=== PATIENT | female | born 1960 | race Asian ===

== ENCOUNTER 2023-01-09 16:12 | Outpatient (REF) | payer OTHER, SELFPAY ==
--- NOTE | 2023-01-09 16:00 | PAPFT_PTH ---
PATIENT: Leonora Mcdowell LOC: [facility] U#:[id number] AGE/SX: 62/F ROOM: RE01/09/[address]: Vanessa Villalobos MD : 1960 BED: DIS: 01/09/2023 SPEC #: [id number] RECD: 01/09/23 17:30 STATUS: BETH REQ #: [id number] MARY: 01/09/23 16:[address]: Vanessa Villalobos DEPT: [facility] Cytology RECD BY: Adelia Lopes ENTERED: 01/09/23 17:31 SP TYPE: PAPFT OTHR DR: Regi Thornton, DO Tissues: 1 - CX/ENDOCX FOR PAP SMEARS Procedures: PAP THIN PREP/[facility] Screening Comments: [id number] (UNSATISFACTORY FOR EVALUATION)
== END 2023-01-09 16:13 | disposition home or self-care (01) ==
LOC: LBN 16:12
PROVIDERS: PCP Student in an Organized Health Care Education/Training Program; Visit Provider Obstetrics & Gynecology
DX: Z12.4 Encounter for screening for malignant neoplasm of cervix (principal); R87.615 Unsatisfactory cytologic smear of cervix
CPT/HCPCS: 88142

== ENCOUNTER 2023-03-01 00:09 | Outpatient (CLI) | payer OTHER, SELFPAY ==
--- NOTE | 2023-03-01 06:45 | DI.DEXA_ITS ---
Exam(s) XR DEXA BONE DENSITY W/WO JOSE EXAM: XR DEXA BONE DENSITY W/WO JOSE CLINICAL HISTORY: evaluation of bone density,osteopenia,family h/o osteoporosis,M85.80 TECHNIQUE: [employer] C densitometer analysis of left hip, lumbar spine and left forearm. Lat eral survey image of the thoracic and lumbar spine. COMPARISON: No exams were available for comparison FINDINGS: Lateral view of the thoracic and lumbar spine shows no evidence of compression fractures. Bone mineral density measurements of the lumbar spine correspond to a total T-score of -2.1, in the o steopenic range. Bone mineral density measurements of the left hip correspond to a total T-score of -2.4. The femora l neck T-score is -2.5, at the borderline of osteoporosis.. The left forearm bone mineral density measurements correspond to a T-score of the distal 3rd of -3.0 , in the osteoporotic range. IMPRESSION: Osteopenia lumbar spine. Osteoporosis of the left hip and forearm.
--- NOTE | 2023-03-01 08:50 | DI.MAMMO_ITS ---
Exam(s) MAMMO SCREENING EXAM: MAMMO SCREENING CLINICAL HISTORY: screening,z12.39. TECHNIQUE: Bilateral full field digital CC and MLO mammographic images were obtained with 3D tomosyn thesis and utilizing computer aided detection (CAD). COMPARISON: None. Prior outside mammograms not able to be obtained. FINDINGS: There are no CAD designations. There are no new spiculated masses nor malignant appearing microcalcification groups. There is no significant architectural distortion nor skin thickening-retraction. IMPRESSION: No radiographic evidence of malignancy. BI-RADS Category 1 - Negative Breast Density - Category B - Scattered areas of fibroglandular density Breast density Category C or D implies that the patient has dense breast tissue. Dense breast tissue can make it harder to find cancer on a mammogram. Dense breast tissue is also associated with an incr eased risk of breast cancer. This information about the result of the mammogram report was provided to the patient to raise their awareness. Use this report when you speak with the patient about their risks for breast cancer, which includes their family history. At that time, you may recommend additional screening tests (Ultrasoun d or MRI) as these tests may add significant information. A negative radiographic report should not delay biopsy if a dominant or clinically suspicious mass is present. Up to ten percent of cancers are not identified on mammography. A negative report may reinforce clinical impression. Adenosis and dense breasts may obscure an underlying neoplasm. False positive reports average 6 to 10%. Patient will receive a letter notifying them of these results.
== END 2023-03-01 00:29 ==
PROVIDERS: PCP Student in an Organized Health Care Education/Training Program; Visit Provider Student in an Organized Health Care Education/Training Program
DX: Z12.31 Encounter for screening mammogram for malignant neoplasm of breast (principal); M85.80 Other specified disorders of bone density and structure, unspecified site; Z82.62 Family history of osteoporosis; Z13.820 Encounter for screening for osteoporosis
CPT/HCPCS: 77063; 77067; 77080

== ENCOUNTER 2023-03-26 01:56 | Outpatient (CLI) | payer OTHER, SELFPAY ==
[2023-03-26 09:08] LABS: HGB 13.3 g/dL (11.2-15.7)
[2023-03-26 10:33] LABS: ALT 24 U/L (14-59); AST 17 U/L (15-37); Albumin 3.8 g/dL (3.4-5.0); Alkaline Phosphatase 71 U/L (46-116); Anion Gap 9.4 mmol/L (3-11); BUN 17 mg/dL (7-18); Bilirubin, Total 0.6 mg/dL (0.2-1.0); CO2 28.6 mmol/L (21.0-32.0); CREATININE 0.8 mg/dL (0.55-1.02); Calcium 8.9 mg/dL (8.5-10.1); Calculated LDL 127 mg/dL (<100); Chloride 105 mmol/L (98-107); Cholesterol 233 mg/dL (<200); Estimated GFR 83.78 (mL/min/1.73m2); Glucose 108 mg/dL (74-106); HDL Cholesterol 73 mg/dL (40-60); Potassium 3.9 mmol/L (3.5-5.1); Sodium 143 mmol/L (136-145); Total Protein 7.4 g/dL (6.4-8.2); Triglyceride 167 mg/dL (<150)
[2023-03-26 10:59] LABS: Vitamin D 25 Total 68.9 ng/mL (30-100)
== END 2023-03-26 01:57 | disposition home or self-care (01) ==
LOC: LBO 01:57
PROVIDERS: PCP Student in an Organized Health Care Education/Training Program; Referring Provider Student in an Organized Health Care Education/Training Program; Visit Provider Student in an Organized Health Care Education/Training Program
DX: M85.80 Other specified disorders of bone density and structure, unspecified site (principal); K90.9 Intestinal malabsorption, unspecified; R73.09 Other abnormal glucose; Z91.89 Other specified personal risk factors, not elsewhere classified; Z13.220 Encounter for screening for lipoid disorders
CPT/HCPCS: 36415; 80053; 80061; 82306; 83735; 85018

== ENCOUNTER 2025-05-05 02:17 | Outpatient (CLI) | payer OTHER, SELFPAY ==
[2025-05-05 08:09] LABS: ALT 24 U/L (14-59); AST 18 U/L (15-37); Albumin 3.8 g/dL (3.4-5.0); Alkaline Phosphatase 70 U/L (46-116); Anion Gap 7.4 mmol/L (3-11); BUN 18 mg/dL (7-18); Bilirubin, Total 0.6 mg/dL (0.2-1.0); CO2 28.6 mmol/L (21.0-32.0); Calcium 9.0 mg/dL (8.5-10.1); Calculated LDL 153 mg/dL (<100); Chloride 105 mmol/L (98-107); Cholesterol 258 mg/dL (<200); Estimated GFR 97.12 (mL/min/1.73m2); Glucose 119 mg/dL (74-106); HDL Cholesterol 80 mg/dL (>or=50); Potassium 4.3 mmol/L (3.5-5.1); Sodium 141 mmol/L (136-145); Total Protein 7.1 g/dL (6.4-8.2); Triglyceride 126 mg/dL (<150)
== END 2025-05-05 02:18 | disposition home or self-care (01) ==
LOC: LBO 02:17
PROVIDERS: PCP Family Medicine; Referring Provider Family Medicine; Visit Provider Family Medicine
DX: E78.5 Hyperlipidemia, unspecified (principal)
CPT/HCPCS: 36415; 80053; 80061

== ENCOUNTER 2025-05-17 01:43 | Outpatient (CLI) | payer OTHER, SELFPAY ==
--- NOTE | 2025-05-17 08:10 | DI.MAMMO_ITS ---
Exam(s) MAMMO SCREENING EXAM: MAMMO SCREENING CLINICAL HISTORY: screening,z12.39. TECHNIQUE: Bilateral full field digital CC and MLO mammographic images were obtained with 3D tomosynthesis and utilizing computer aided detection (CAD). COMPARISON: Prior mammograms were reviewed. FINDINGS: There has been no significant change in the appearance and distribution of the fibroglandular tissue. There are no CAD designations There are no new spiculated masses nor malignant appearing microcalcification groups. There is no significant architectural distortion nor skin thickening-retraction. IMPRESSION: No radiographic evidence of malignancy. BI-RADS Category 1 - Negative Breast Density - Category B - There are scattered areas of fibroglandular density. Breast density Category C or D implies that the patient has dense breast tissue. Dense breast tissue can make it harder to find cancer on a mammogram. Dense breast tissue is also associated with an increased risk of breast cancer. This information about the result of the mammogram report was provided to the patient to raise their awareness. Use this report when you speak with the patient about their risks for breast cancer, which includes their family history. At that time, you may recommend additional screening tests (Ultrasound or MRI) as these tests may add significant information. A negative radiographic report should not delay biopsy if a dominant or clinically suspicious mass is present. Up to ten percent of cancers are not identified on mammography. A negative report may reinforce clinical impression. Adenosis and dense breasts may obscure an underlying neoplasm. False positive reports average 6 to 10%. Patient will receive a letter notifying them of these results.
== END 2025-05-17 02:03 ==
LOC: DI 01:43
PROVIDERS: PCP Family Medicine; Visit Provider Family Medicine
DX: Z12.31 Encounter for screening mammogram for malignant neoplasm of breast (principal); R92.323 Mammographic fibroglandular density, bilateral breasts
CPT/HCPCS: 77063; 77067

== ENCOUNTER 2025-07-28 09:48 | Day surgery (SDC) | payer OTHER, SELFPAY ==
[2025-07-28 10:04] VITALS: BP 139/85; PULSE 90; RESP 20; TEMP 36.8; O2SAT 98
[2025-07-28] MEDS: Lactated Ringers 1,000 ML 80 ML IV (10:39)
--- NOTE | 2025-07-28 11:17 | W.ANESPRE ---
General Info Date of Service Date Performed: 07/28/25 Height: 5 ft 2 in Weight: 46.9 kg Body Mass Index (BMI): 18.8 Surgical Procedure: Operation Date: 07/28/25 12:25 Proposed Procedure Side Surgeon p Colonoscopy MD isabela Zelaya Possible Internal Hemorrhoid Banding Franci Plata MD Actual Procedure Side Surgeon p Colonoscopy Not Applicable MD isabela Zelaya Possible Internal Hemorrhoid Banding Not Applicable Franci Plata MD Meds Allergies and Home Medications Allergies Allergy/AdvReac Type Severity Reaction Status Date / Time No Known Allergies Allergy Verified 07/28/25 10:24 Home Medication Medication Instructions Recorded cholecalciferol (vitamin D3) 125 125 mcg PO DAILY #90 caps 03/14/23 mcg (5,000 unit) capsule betamethasone dipropionate 0.05 % 1 applic topical DAILY PRN skin 04/27/25 topical cream irritation #45 grams bisacodyl 5 mg tablet,delayed 5 mg PO ONCE #4 tabs 07/14/25 release (Dulcolax (bisacodyl)) polyethylene glycol 3350 17 17 g PO ONCE #238 grams 07/14/25 gram/dose oral powder Current Visit Medications: Current Medications Generic Name Dose Route Start Last Admin Trade Name Freq PRN Reason Stop Dose Admin Ringer's Solution 1,000 mls @ 80 mls/hr 07/28/25 06:00 07/28/25 10:39 IV 07/28/25 23:59 80 mls/hr INFUSION VIPIN Administration IV Miscellaneous Supplies 1 each 07/28/25 06:00 Iv Access IV 07/28/25 23:59 DIRECTED VIPIN Sodium Chloride 0 ml 07/28/25 06:00 Normal Saline Flush 10 Ml Syr IV 07/28/25 23:59 PRN PRN Sodium Chloride 0 ml 07/28/25 06:00 Normal Saline 10 Ml Vial IJ 07/28/25 23:59 DIRECTED PRN Sterile Water 0 ml 07/28/25 06:00 Water,Injection,Sterile 10 Ml Vial IJ 07/28/25 23:59 DIRECTED PRN PFSH Active Problems Active Problems: Problem Status Onset Code Family history of vertebral artery stenosis Acute Z82.49 Family history of cerebrovascular accident (CVA) Chronic Z82.3 Osteopenia Acute M85.80 Eczema Acute L30.9 Family history of osteoporosis Acute Z82.62 Surgical History Surgical History H/O cataract extraction (2018) History of dilation and curettage (~06/1999) Hx of colonoscopy 04/25/2016, 6yr recall (Neg, but Fam Hx) Note: ... Sigmoid and descending colon were exceedingly complex with atypical loops... Tobacco Smoking/Tobacco Use Status: Never Passive smoking exposure: No Alcohol Alcohol Intake: current Alcohol intake frequency: 0-2 drinks per day Substance Use Substance use: Never Substance use type: does not use Counseling provided: none Prental History History 3 Para Hx # Term Pregnancies 2 Multiple births Hx # Pregnancies Ectopic pregnancies AB induced Hx Number of Living Children 2 AB spontaneous 1 Past Pregnancies Del. Date GA/Weeks # Preg Succ Route Wgt Sex Labor Lgth Anesthesia Location Prov Complic 09/04/92 40 Yes vaginal 4082.331 g Male [place], [place] shoulder dystocia 10/15/96 40 Yes vaginal 3628.739 g Male [place], [place] shoulder dystocia Vital Signs and Lab Results Vital Signs Most Recent Vital Signs in EMR: Most Recent Vital Signs Temp Pulse Resp BP Pulse Ox 36.8 C 90 20 139/85 98 07/28/25 10:04 07/28/25 10:04 07/28/25 10:04 07/28/25 10:04 07/28/25 10:04 Imaging and Studies Imaging and Studies Study information below may be from another EMR and interpreted by another provider. Please see original notes in EMR for more complete details. EKG Summary: 01/20/23: Sinus Bradycardia Carotid Artery Summary:: 04/09/23: Exam(s) US CAROTID EXAM: US CAROTID CLINICAL HISTORY: ?stenosis; healthy brother just CVA,FAMILY H/O CAROTID ARTERY STENOSIS. TECHNIQUE: Ultrasound carotids performed using grayscale, color-flow, and spectral Doppler imaging. COMPARISON: No exams were available for comparison FINDINGS: CAROTID ARTERIES: There is mild plaque at the level of both carotid bulbs. No elevated velocities evident. Minimal plaque at the level of the proximal internal carotid arteries. No evaluated velocities at and distal to these levels. Anesthesia Assessment and Plan Anesthesia History Personal History: No History of Anesthesia Complications Family History: No Family History of Anesthesia Complications Exercise Tolerance Exercise Tolerance: Metabolic Equivalents>4 Pertinent Negatives Pertinent Negatives: No Major Cardiovascular Symptoms or Complaints and No Major Pulmonary Symptoms or Complaints Cardiac & Pulmonary Exam Cardiac Exam: Normal S1/S2 Heart Sounds Pulmonary Exam: Clear Bilateral Breath Sounds Implantable Cardiac Device Does patient have a Pacemaker or an ICD?: No Airway Exam Known Difficult Airway: No Mallampati Class: 2 Mouth Opening: Normal (> 3cm) Thyromental Distance: Greater than 3 cm Neck Range of Motion: Full ROM Neck Circumference: Normal Teeth Condition: Normal Dentition ASA Classification ASA Score: ASA 2 Emergency Case?: No NPO Status NPO Status: NPO Clears >2 hours, Solids >8 hours Anesthesia Plan Resuscitation Status: Full Code Anesthesia Technique: General Anesthesia Airway Planned: Natural Airway Monitors Used: Standard Monitors Preoperative Comments:: No active GERD symptoms, did report some nausea last evening associated with the prep, but no symptoms this morning.
[2025-07-28 11:19] VITALS: BMI 18.8
--- NOTE | 2025-07-28 11:57 | W.PM.DSUDISC ---
Date of service: 07/28/25 Discharge Plan Disposition Patient Disposition: Home Condition: Good Discharge Details Reason For Visit: Screening colonoscopy Attending Provider: Franci Plata Primary Care Provider: Valentin Simms Home Meds and New Rx's Prescriptions: Continued cholecalciferol (vitamin D3) 125 mcg (5,000 unit) capsule 125 mcg PO DAILY Qty: 90 1RF Rx Instructions: Start daily, after weekly high dose. betamethasone dipropionate 0.05 % cream 1 applic topical DAILY PRN (Reason: skin irritation) Qty: 45 0RF Rx Instructions: Apply to affected areas Discontinued bisacodyl [Dulcolax (bisacodyl)] 5 mg tablet,delayed release (DR/EC) 5 mg PO ONCE Qty: 4 0RF Rx Instructions: Take per colonoscopy instructions provided by ordering providers office polyethylene glycol 3350 17 gram/dose powder 17 g PO ONCE Qty: 238 0RF Rx Instructions: Take per colonoscopy instructions provided by ordering providers office Discharge Instructions Additional Instructions: Your colonoscopy went well today. The entire colon appeared normal. You did have evidence of external hemorrhoids on exam which are not ammendable to banding. Given your family history the recommendation would be to have a repeat colonoscopy in 10 yrs. Please contact the general surgery office if you have further questions or concerns. 1. If tolerated, consume a soft, low fiber diet for 1-2 days. [address] Do not drive, drink alcohol, operate machinery, make critical decisions, or do activities that require coordination or balance for 24 hours. 3. Because air was put into your colon during the procedure, expelling air from your rectum (passing gas or farting) is normal. 4. You may not have a bowel movement for 1-3 days because of the colonoscopy prep. This is normal. 5. Go directly to the emergency room if you notice any of the following: Develop chills (warm to touch), or if you have a thermometer and your temperature is above 101 Difficulty breathing or difficultly swallowing Persistent vomiting Severe abdominal pain, other than gas cramps Severe chest pain Black, tarry stools Any bleeding – exceeding one tablespoon 6. Call your physician if the site where your intravenous was started becomes red, swollen, painful, and warm to touch. 7. Your physician has reviewed your pre-procedure medications. Please continue to take those medications as previously ordered. You will be given specific information/education regarding any changes to your medications before leaving. Stand Alone Forms: Anesthesia Discharge Inst., [facility] (DSU) Activity:: Activity as Tolerated Diet:: As Tolerated Discharge Orders Discharge Orders: Discharge Order (Routine); Ordered 07/28/25 Ordered By: Franci Plata
[2025-07-28 11:58] VITALS: BP 110/70; PULSE 65; RESP 16; TEMP 36.3; O2SAT 100
--- NOTE | 2025-07-28 12:04 | COLE_ITS ---
Date of service: 07/28/25 Time of Service: 12:04 Colonoscopy Report Date of procedure: 07/28/25 Pre-op diagnosis general: Screening colonoscopy, family history of colon cancer Post-op diagnosis procedure note: same Procedure: Colonoscopy Surgeon: Franci Plata Anesthesia Type: General:No Airway Estimated blood loss (mL): 1 Pathology: none sent Complications: None Disposition: PACU Indications: Patient is 64 yo female who presents for a screening colonoscopy. She has a family history of colon cancer. Prep: Miralax/Dulcolax Procedure Start Time: 11:33 Procedure End Time: 11:50 Retraction Time: 8 Findings: Evidence of external hemorrhoids. Otherwise normal colonoscopy. Procedure Description: Informed consent was obtained. The patient was taken to the endoscopy suite and placed in the left lateral decubitus position. After adequate intravenous sedation, digital rectal exam was performed, which was normal. There was evidence of external hemorrhoids. A colonoscope was inserted into the rectum and negotiated to the cecum with some difficulty due to looping. Completion was aided by abdominal pressure. The ileocecal valve and appendiceal orifice were identified. The entire colonic mucosa was then carefully circumferentially inspected upon slow withdrawal of the scope. The entire colon appeared normal. Retroflexion in the rectum was unremarkable. The patient tolerated the procedure well with no complications. Postoperatively, the patient was transferred to the recovery room in stable condition. Blessing Bowel Prep Blessing Bowel Prep Right Colon: 3 Left Colon: 3 Transverse Colon: 3 Total Score: 9
--- NOTE | 2025-07-28 12:04 | W.ANESPOSTOP ---
Postoperative Evaluation Date, Time and Location Date Performed: 07/28/25 Time Performed: 12:02 Patient Location: Day Surgery Unit Vital Signs Most Recent Imported Vital Signs: Most Recent Vital Signs Temp Pulse Resp BP Pulse Ox 36.3 C L 65 16 110/70 100 07/28/25 11:58 07/28/25 11:58 07/28/25 11:58 07/28/25 11:58 07/28/25 11:58 Assessment Mental Status: Awake (Alert & Oriented to Patient Baseline) Airway and Respiratory Function: Patent airway with normal (patient baseline) respiratory exam Cardiovascular Function: Hemodynamically Stable Hydration Status: Adequately Hydrated Nausea & Vomiting: No Nausea or Vomiting Pain: Pt. Denies Any Pain Peripheral Nerve Block: Patient did not receive a nerve block
[2025-07-28 12:19] VITALS: BP 116/75; PULSE 52; RESP 16; TEMP 36.1; O2SAT 100
== END 2025-07-28 12:30 | disposition home or self-care (01) ==
PROVIDERS: PCP Family Medicine; Visit Provider Student in an Organized Health Care Education/Training Program
PROC: 0DJD8ZZ Inspection of Lower Intestinal Tract, Via Natural or Artificial Opening Endoscopic (ICD-10-PCS; CPT 45378; principal; 2025-07-28 12:15)
DX: Z12.11 Encounter for screening for malignant neoplasm of colon (principal); Z80.0 Family history of malignant neoplasm of digestive organs; K64.8 Other hemorrhoids
CPT/HCPCS: 45378; J2003; J2704